=== PATIENT | male | born 2000 | race Caucasian/White ===

== ENCOUNTER 2023-11-17 18:19 | Emergency (ER) | payer OTHER ==
[2023-11-17 18:42] VITALS: BP 137/85; O2SAT 100
[2023-11-17 18:55] LABS: RAPID STREP SCREEN Negative (Negative)
[2023-11-17] MEDS ORDERED: KETOROLAC 60 MG/2 ML VIAL IM STA (19:35)
[2023-11-17] MEDS ORDERED: DEXAMETHASONE 10 MG/ML VIAL IM STA (19:35)
--- NOTE | 2023-11-17 19:40 | ED Physician Documentation ---
PD HPI HEENT - Stated complaint Stated Complaint: SORE THROAT,LT EAR PX - Chief complaint Chief Complaint: Heent - History obtained from History obtained from: Patient - Additional information Additional information: The patient comes to the emergency department chief complaint of sore throat over the last few days. He states he feels like it is getting worse and now, it really hurts to swallow. It is confined mostly to the left side. He denies any fevers or chills. He has a little bit of a cough and a runny nose. No GI symptoms. No difficulty breathing. PD PAST MEDICAL HISTORY - Past Medical History Past Medical History: No - Past Surgical History Past Surgical History: No - Present Medications Home Medications: Ambulatory Orders Medication Instructions Recorded Confirmed HYDROcodone/ACET 7.5/325 ANASTACIA 10 ml PO Q6HR PRN #150 ml 11/17/23 [Lortab 7.5/325 Anastacia] predniSONE [Deltasone] 60 mg PO DAILY 5 Days #15 tablet 11/17/23 - Allergies Allergies/Adverse Reactions: Allergies Allergy/AdvReac Type Severity Reaction Status Date / Time No Known Drug Allergies Allergy Verified 11/17/23 18:40 - Social History Does the pt smoke?: No Smoking Status: Never smoker Does the pt drink ETOH?: No Does the pt have substance abuse?: No - Immunizations Immunizations are current?: Yes PD ED PE NORMAL - Vitals Vital signs reviewed: Yes - General General: Alert and oriented X 3, No acute distress, Well developed/nourished - HEENT HEENT: Atraumatic, PERRL, EOMI, Moist mucous membranes, Other (Mild erythema of bilateral tonsils. Symmetrical soft palate and posterior pharyngeal tissues. Mild amount of mucus on both tonsils. No exudates. Managing secretions, no vocal muffling.) - Neck Neck: Supple, no meningeal sign, Other (Mild bilateral anterior cervical lymphadenopathy, left greater than right.) - Cardiac Cardiac: RRR, No murmur, Strong equal pulses - Respiratory Respiratory: No respiratory distress, Clear bilaterally - Abdomen Abdomen: Soft, Non tender, Non distended - Derm Derm: Normal color, Warm and dry, No rash - Extremities Extremities: No deformity - Neuro Neuro: Alert and oriented X 3, Other (Grossly intact) - Psych Psych: Normal mood, Normal affect Results - Vitals Vitals: Vital Signs - 24 hr 11/17/23 18:36 Temperature 36 C L Heart Rate 71 Respiratory 16 Rate Blood Pressure 137/85 H O2 Saturation 100 Oxygen O2 Source Room air - Labs Labs: Laboratory Tests 11/17/23 16:45 Group A Strep Rapid Negative PD Medical Decision Making - ED course Complexity details: reviewed results, re-evaluated patient, considered differential, d/w patient ED course: The patient strep test was negative. He was treated symptomatically in the emergency department Decadron and Toradol. I discussed with him that he most likely has one of the many viruses that are going around right now and causing such symptoms. I will prescribe him prednisone and Lortab elixir which she may take along with ibuprofen at home. We have discussed the usual indications for return. Departure - Departure Disposition: 01 Home, Self Care Clinical Impression: Acute viral syndrome Pharyngitis Qualifiers: Pharyngitis/tonsillitis etiology: unspecified etiology Qualified Code(s): J02.9 - Acute pharyngitis, unspecified Condition: Stable Instructions: ED Viral Syndrome, ED Pharyngitis Viral Prescriptions: HYDROcodone/ACET 7.5/325 ANASTACIA [Lortab 7.5/325 Anastacia] 10 ml PO Q6HR PRN #150 ml PRN Reason: Pain 5-7 predniSONE [Deltasone] 60 mg PO DAILY 5 Days #15 tablet Comments: Your strep rapid test is negative tonight. There is no evidence of a peritonsillar abscess, as the back your throat is symmetrical. You do have some irritation of your tonsils with mucus on both sides and you do have some viral blisters on the left side. Most likely, this is what is causing the pain you are having. While these blisters are very painful, they will ultimately go away on their own. To help with the discomfort, prescriptions for a steroid and liquid pain medicine and been electronically transmitted to the [facility] pharmacy in [place]. A throat culture is also pending and will become back in the next day or 2. If this is positive for any other of the strep subcategories, we will give you a call and send in an antibiotic prescription for you. Forms: PCP List, Activity restrictions
--- NOTE | 2023-11-19 01:58 | ED Physician Documentation ---
ED Addendum - Addendum Addendum: 11/19/23 01:56 BASHIR Bradford gave me culture results for this patient showing beta hemolytic strep. Amoxicillin antibiotics electronically sent to [facility] pharmacy. technical staff engineer passed on to the day team to call patient to fill prescription. 11/19/23 01:58
== END 2023-11-17 20:04 | disposition home or self-care (01) ==
LOC: ED 18:19
DX: B34.9 Viral infection, unspecified (principal); J02.9 Acute pharyngitis, unspecified
CPT/HCPCS: 87070; 87077; 87430; 96372; 99283

== ENCOUNTER 2023-11-19 04:34 | Emergency (ER) | payer OTHER ==
[2023-11-19] MEDS ORDERED: AMOXICILLIN 250 MG CAPSULE PO STA (04:49)
[2023-11-19] MEDS ORDERED: LIDOCAINE VISCOUS 2% 15 ML ORAL SYRINGE MM STA (04:49)
[2023-11-19] MEDS ORDERED: KETOROLAC 30 MG/ML VIAL IM STA (04:49)
[2023-11-19 04:50] VITALS: BP 137/95; O2SAT 99
--- NOTE | 2023-11-19 04:52 | ED Physician Documentation ---
PD HPI URI - Stated complaint Stated Complaint: LT EAR PX/THROAT PX - Chief complaint Chief Complaint: Heent - History obtained from History obtained from: Patient - Additional information Additional information: 23yM presents to the ED with sore throat, found to have +strep culture. also with L ear pain progressively worsening PD PAST MEDICAL HISTORY - Past Medical History Past Medical History: No - Past Surgical History Past Surgical History: No - Present Medications Home Medications: Ambulatory Orders Medication Instructions Recorded Confirmed HYDROcodone/ACET 7.5/325 ANASTACIA 10 ml PO Q6HR PRN #150 ml 11/17/23 11/19/23 [Lortab 7.5/325 Anastacia] predniSONE [Deltasone] 60 mg PO DAILY 5 Days #15 tablet 11/17/23 11/19/23 Amoxicillin 500 mg PO BID #20 cap 11/19/23 Amoxicillin 875 mg PO BID #14 tablet 11/19/23 - Allergies Allergies/Adverse Reactions: Allergies Allergy/AdvReac Type Severity Reaction Status Date / Time No Known Drug Allergies Allergy Verified 11/17/23 18:40 - Social History Does the pt smoke?: No Smoking Status: Never smoker Does the pt drink ETOH?: No Does the pt have substance abuse?: No - Immunizations Immunizations are current?: Yes - POLST Patient has POLST: No PD ED PE NORMAL - Vitals Vital signs reviewed: Yes - General General: Alert and oriented X 3, No acute distress, Well developed/nourished - HEENT HEENT: Atraumatic, PERRL, EOMI, Other (L TM mild erythema. R TM clear. erythema to posterior oropharynx) - Neck Neck: Supple, no meningeal sign Results - Vitals Vitals: Vital Signs - 24 hr 11/19/23 04:39 Temperature 37.2 C Heart Rate 91 Respiratory 18 Rate Blood Pressure 137/95 H O2 Saturation 99 Oxygen O2 Source Room air PD Medical Decision Making - ED course ED course: 23yM presents with strep throat and L ear pain, with mild erythema to L TM on exam. Since treatment for OM is similar for strep pharyngitis, will send amoxicillin to his pharmacy. return precautions given. plan to f/u with pcp. Departure - Departure Disposition: 01 Home, Self Care Clinical Impression: Strep throat Condition: Stable Instructions: ED Strep Pharyngitis Conf Prescriptions: Amoxicillin 500 mg PO BID #20 cap Comments: You were seen in the emergency department for strep throat. Antibiotics were sent electronically to [facility]. Please follow-up with your primary care provider and return to the emergency department if you have any new or worsening symptoms or other concerns.
== END 2023-11-19 05:11 | disposition home or self-care (01) ==
LOC: ED 04:34
DX: J02.0 Streptococcal pharyngitis (principal); H92.02 Otalgia, left ear
CPT/HCPCS: 96372; 99283; A9270